=== PATIENT | female | born 1990 | race Two or more races ===

== ENCOUNTER 2024-10-31 12:09 | Inpatient (IN) | payer BC, OTHER ==
[2024-10-31] MEDS: LACTATED RINGERS SOLUTION 1,000 ML/1,000 ML INFUS.BAG IV SCH (13:35)
[2024-10-31] MEDS ORDERED: AMPICILLIN SODIUM 2 GM VIAL ONE (13:58)
[2024-10-31] MEDS: BETAMET ACET/BETAMET NA PH 30 MG/5 ML VIAL IM SCH (14:00)
[2024-10-31] MEDS: AMPICILLIN - 2 GM in SODIUM CHLORIDE 100 ML IVPB ONE (14:00)
[2024-10-31 14:21] LABS: POC NITRAZINE POS
[2024-10-31 14:28] LABS: ABSOLUTE IMMATURE GRANULOCYTES 0.08 x10^3/uL (0.0-0.031); BASOPHILS # 0.04 x10^3/uL (0.01-0.08); EOSINOPHIL % 2.3 % (0.7-5.8); EOSINOPHILS # 0.27 x10^3/uL (0.04-0.36); HEMOGLOBIN 12.4 g/dL (11.2-15.7); MCHC 31.8 g/dl (32.2-35.5); MEAN CELL VOLUME 88.4 fl (79.4-94.8); MEAN PLT VOLUME 11.3 fl (9.4-12.3); MONOCYTE # 1.15 x10^3/uL (0.24-0.86); MONOCYTE % 9.8 % (4.7-12.5); PLATELET COUNT 255 x10^3/uL (182-369); RDW 12.5 % (12.1-16.8)
[2024-10-31 14:34] LABS: INR 1.02 (0.83-1.09); PROTHROMBIN TIME (PATIENT) 11.1 SEC (9.7-13.0)
[2024-10-31 14:37] LABS: ACTIVATED PTT 25.7 SECONDS (25.2-36.5)
[2024-10-31 14:46] LABS: CALCIUM 9.8 mg/dL (8.5-10.1); POTASSIUM 3.9 mmol/L (3.5-5.1)
[2024-10-31 14:47] LABS: BLOOD UREA NITROGEN 8.3 mg/dL (7-18)
[2024-10-31 14:50] LABS: CREATININE 0.5 mg/dL (0.55-1.3)
[2024-10-31 15:41] LABS: HIV INTERPRETATION NEGATIVE (NEGATIVE)
[2024-10-31 16:25] VITALS: BMI 31.4
[2024-10-31] MEDS ORDERED: OXYTOCIN 30 UNITS in 0.9% NS 30 UNIT/500 ML INFUS.BAG IVPB ONE (16:46)
[2024-10-31] MEDS: OXYTOCIN 30 UNITS in 0.9% NS 30 UNIT/500 ML INFUS.BAG IVPB SCH (17:00)
[2024-10-31] MEDS ORDERED: AMPICILLIN SODIUM 1 GM VIAL ONE ×2 (18:14→22:26)
[2024-10-31] MEDS: AMPICILLIN - 1 GM in SODIUM CHLORIDE 100 ML IVPB SCH (22:30)
[2024-11-01] MEDS ORDERED: FENTANYL/BUPIVACAINE/NS/PF - PCEA - 50 ML DISP.SYRIN EP ONE (01:51)
[2024-11-01] MEDS ORDERED: AMPICILLIN SODIUM 1 GM VIAL ONE (01:53)
[2024-11-01] MEDS ORDERED: FENTANYL CITRATE/PF 50 MCG/ML VIAL ONE (02:15)
[2024-11-01] MEDS ORDERED: BUPIVACAINE HCL/PF 0.25% (2.5MG/ML) 10 ML VIAL ONE (02:15)
[2024-11-01] MEDS: FENTANYL/BUPIVACAINE/NS/PF - PCEA - 50 ML DISP.SYRIN EP SCH (02:37)
[2024-11-01] MEDS ORDERED: NALOXONE HCL 0.4 MG/ML VIAL IVPUSH PRN (02:40)
[2024-11-01] MEDS: OXYTOCIN 20 UNITS in 0.9% NS 20 UNIT/1,000 ML INFUS.BAG IV SCH (03:17)
[2024-11-01] MEDS ORDERED: oxyCODONE HCL 5 MG TABLET PO PRN (03:23)
[2024-11-01] MEDS ORDERED: METHYLERGONOVINE MALEATE 0.2 MG/1 ML AMP IM PRN (03:23)
[2024-11-01] MEDS ORDERED: WITCH HAZEL 50% (TUCKS) 40 PAD/JAR PAD TP PRN (03:23)
[2024-11-01] MEDS ORDERED: BISACODYL 10 MG SUPP.RECT RC PRN (03:23)
[2024-11-01] MEDS ORDERED: BENZOCAINE 28 GM HEMORRHOIDAL OINTMENT TP PRN (03:23)
[2024-11-01] MEDS ORDERED: BENZOCAINE 20% 57 GM BOTTLE TP PRN (03:23)
[2024-11-01] MEDS ORDERED: IBUPROFEN 600 MG TABLET (FP) PO PRN (03:23)
[2024-11-01 03:58] LABS: CORD BASE EXCESS -2.1 mmol/L (0-2); CORD HCO3 22.9 mmHg (20-29); CORD PCO2 40.2 mmHg (30-78); CORD pH 7.373 (7.14-7.44)
[2024-11-01 04:01] LABS: CORD PCO2 55.1 mmHg (30-78); CORD pH 7.274 (7.14-7.44)
[2024-11-01] MEDS: PRENATAL VITAMINS W/ FOLIC ACID TABLET (FP) PO SCH (10:24)
[2024-11-02 06:57] LABS: ABSOLUTE IMMATURE GRANULOCYTES 0.09 x10^3/uL (0.0-0.031); BASOPHILS # 0.06 x10^3/uL (0.01-0.08); EOSINOPHILS # 0.27 x10^3/uL (0.04-0.36); HEMATOCRIT 37.1 % (34.1-44.9); HEMOGLOBIN 11.5 g/dL (11.2-15.7); MEAN CELL VOLUME 90.7 fl (79.4-94.8); MEAN PLT VOLUME 10.7 fl (9.4-12.3); MONOCYTE # 1.33 x10^3/uL (0.24-0.86); MONOCYTE % 9.7 % (4.7-12.5); PLATELET COUNT 243 x10^3/uL (182-369); RDW 12.6 % (12.1-16.8)
[2024-11-02] MEDS: ACETAMINOPHEN 325 MG TABLET (FP) PO PRN (10:04)
[2024-11-02] MEDS ORDERED: SENNOSIDES/DOCUSATE COMBO (SENNA PLUS) TABLET (UD) PO PRN (22:00)
[2024-11-02 22:08] VITALS: RESP 18
[2024-11-03 12:42] VITALS: BP 129/60; PULSE 73; TEMP 97.5
== END 2024-11-03 16:00 | disposition home or self-care (01) | DRG 807 ==
LOC: JLDR 12:09 → J3W 11-01 05:44
PROVIDERS: ADMIT Obstetrics & Gynecology; ATTEND Obstetrics & Gynecology
PROC: 10E0XZZ Delivery of Products of Conception, External Approach (ICD-10-PCS; principal; 2024-11-01)
DX: O42.913 Preterm premature rupture of membranes, unspecified as to length of time between rupture and onset of labor, third trimester (principal); Z37.0 Single live birth; Z3A.34 34 weeks gestation of pregnancy
CPT/HCPCS: 36415; 36600; 59409; 80048; 82803; 83986-QW; 85025; 85032; 85610; 85730; 86780; 86850; 86900; 86901; 87389; 96372